=== PATIENT | male | born 1985 | race African-American/Black ===

== ENCOUNTER 2019-03-10 12:34 | Emergency (ER) | payer SELFPAY ==
[~2019-03-10] VITALS: Ht 182.9 cm; Wt 93.0 kg
[2019-03-10 12:35] VITALS: BP 148/83
[2019-03-10] MEDS ORDERED: penicillin G benzathine 1.2 million unit/2ml syringe IM ONE (12:45)
[2019-03-12 08:11] LABS: RPR Reactive (Non Reactive)
== END 2019-03-10 13:19 | disposition home or self-care (01) ==
LOC: ER 12:34
DX: A53.9 Syphilis, unspecified (principal); L98.9 Disorder of the skin and subcutaneous tissue, unspecified
CPT/HCPCS: 36415; 86592; 96372; 99283; J0561

== ENCOUNTER 2020-08-21 14:57 | Emergency (ER) | payer MEDICAID ==
[~2020-08-21] VITALS: Ht 182.9 cm; Wt 109.1 kg
[2020-08-21 15:00] VITALS: BP 141/83
[2020-08-21] MEDS ORDERED: ONDA4TAB6 PO (15:24)
[2020-08-21] MEDS ORDERED: METH4TAB81 PO (15:24)
[2020-08-21] MEDS ORDERED: HYDR-3965 PO (15:24)
[2020-08-21] MEDS ORDERED: AMOX500C2 PO (15:24)
== END 2020-08-21 15:31 | disposition home or self-care (01) ==
LOC: ER 14:57
DX: S02.5XXA Fracture of tooth (traumatic), initial encounter for closed fracture (principal); K08.89 Other specified disorders of teeth and supporting structures; K02.9 Dental caries, unspecified; Z79.2 Long term (current) use of antibiotics; Z79.899 Other long term (current) drug therapy; X58.XXXA Exposure to other specified factors, initial encounter; Y93.89 Activity, other specified; Y92.89 Other specified places as the place of occurrence of the external cause; Y99.8 Other external cause status
CPT/HCPCS: 99283